=== PATIENT | female | born 1960 | race Caucasian/White ===

== ENCOUNTER 2016-05-15 14:15 | Observation (INO) | payer MEDICARE ==
[~2016-05-15] VITALS: Ht 162.6 cm; Wt 101.3 kg
[~2016-05-15 14:15] MED LIST: BUSPIRONE HCL15 MG PO; CORDARONE 200M200 MG PO; COREG 3.125M3.125 MG PO; CYMBALTA60 MG PO; ELIQUIS2.5 MG PO; FERROUS SULFAT140 MG PO; IMDUR ER TAB 3030 MG PO; IPRAT-ALBUT 0.5-3 ML INH; KLOR-CON M2020 MEQ PO; LASIX 40 MG TAB40 MG PO; LINZESS145 MCG PO; LIORESAL TAB 1010 MG PO; LISINOPRIL5 MG PO; NITROSTAT0.4 MG SL; ONE-A-DAY WOM200 MCG PO; PRAVACHOL20 MG PO; PROTONIX 40 MG40 M1 PO; RANEXA1000 MG PO; ST. JOSEPH ASPI81 MG PO; TECFIDERA240 MG PO; VITAMIN B-122500 MCG SL; VITAMIN D31000 UNI1 PO
[2016-05-15 16:09] LABS: HEMOGLOBIN 12.5 gm/dl (12.3-15.3); RED BLOOD COUNT 4.76 M/UL (4.00-5.10); WHITE BLOOD COUNT 4.4 K/UL (4.5-11.0)
[2016-05-15 17:42] LABS: BUN/CREATININE RATIO 13 (0-10)
[2016-05-16 03:02] LABS: HEMOGLOBIN 13.6 gm/dl (12.3-15.3); RED BLOOD COUNT 5.1 M/UL (4.00-5.10); WHITE BLOOD COUNT 5.2 K/UL (4.5-11.0)
[2016-05-16 03:22] LABS: BUN/CREATININE RATIO 13 (0-10)
[2016-05-17] MEDS ORDERED: ROBITUSSIN DM U10 ML PO (12:23)
[2016-05-17] MEDS ORDERED: Z-PAK (12:24)
[2016-05-17] MEDS ORDERED: MEDROL DOSEPAK 24 MG PO (12:24)
== END 2016-05-17 13:45 | disposition home or self-care (01) ==
LOC: ER1 14:15 → M/S 18:40 → ZEROF 18:40 → M/S 20:30
PROVIDERS: Emergency Medicine; ADMIT Hospitalist
DX: I50.23 Acute on chronic systolic (congestive) heart failure (principal); I11.0 Hypertensive heart disease with heart failure; J20.9 Acute bronchitis, unspecified; I25.5 Ischemic cardiomyopathy; I25.10 Atherosclerotic heart disease of native coronary artery without angina pectoris; I48.0 Paroxysmal atrial fibrillation; E78.5 Hyperlipidemia, unspecified; J44.1 Chronic obstructive pulmonary disease with (acute) exacerbation; D50.9 Iron deficiency anemia, unspecified; Z95.810 Presence of automatic (implantable) cardiac defibrillator; Z87.39 Personal history of other diseases of the musculoskeletal system and connective tissue; Z79.82 Long term (current) use of aspirin; Z79.899 Other long term (current) drug therapy; Z90.710 Acquired absence of both cervix and uterus; Z98.61 Coronary angioplasty status; Z87.891 Personal history of nicotine dependence; Z79.52 Long term (current) use of systemic steroids; Z79.01 Long term (current) use of anticoagulants; Z88.8 Allergy status to other drugs, medicaments and biological substances
CPT/HCPCS: 36415; 36600; 71010; 80053; 80061; 82550; 82553; 82803; 83880; 84439; 84443; 84480; 84484; 85025; 85027; 87040; 94640; 94664; 96365; 96366; 96374; 96375; 96376; 99285; C9113; G0378; J1940; J1956; J2920; J2930

== ENCOUNTER → 2016-06-11 | Outpatient (CLI) | payer MEDICARE ==
[~2016-06-11] MED LIST changes: +MEDROL DOSEPAK 24 MG PO; +ROBITUSSIN DM U10 ML PO; +Z-PAK
== END ==
LOC: US 09:30
DX: I63.8 Other cerebral infarction (principal); I65.23 Occlusion and stenosis of bilateral carotid arteries; J32.3 Chronic sphenoidal sinusitis; I42.9 Cardiomyopathy, unspecified
CPT/HCPCS: ECHO; 70450; 93306; 93880

== ENCOUNTER → 2016-11-08 | Outpatient (CLI) | payer MEDICARE | LOC: HEART 5 08:21 | DX: Z79.899 Other long term (current) drug therapy (principal); F17.210 Nicotine dependence, cigarettes, uncomplicated; R94.2 Abnormal results of pulmonary function studies | CPT/HCPCS: 94060; 94729 ==

== ENCOUNTER → 2020-07-22 | Outpatient (CLI) | payer MEDICARE, OTHER ==
[~2020-07-22] MED LIST changes: +ALLERGY25 M1 PO; +AMPYRA10 MG PO; +ASPIRIN81 MG PO; +BREO ELLIPTA 21 EACH INH; +BUMETANIDE1 MG PO; +CLOPIDOGREL75 MG PO; +COPAXONE40 MG/1 ML IM; +DOXYCYCLINE HY100 M2 PO; +DULERA 100 MCG8.8 GM INH; +ENTRESTO 24 MG1 EACH PO; +FLUZONE QU60 MCG/015 IM; +FOLIC ACID PO; +IPRAT-ALBUT 0.5-3 ML NEB; +IRON PO; +MEGA BIOTIN10000 MCG PO; +OMEPRAZOLE40 MG PO; +OMNICEF 300 MG300 MG PO; +OXCARBAZEPINE150 MG PO; +PREDNISONE20 MG PO; -PROTONIX 40 MG40 M1 PO; +SYMBICORT 16010.2 GM INH; +VALIUM 5 MG TAB5 MG PO; +VENTOLIN HFA 66.7 GM INH; +VITAMIN C 500500 MG PO; +VOLTAREN100 GM TP
== END ==
LOC: LAB 12:40
DX: I20.9 Angina pectoris, unspecified (principal); I25.10 Atherosclerotic heart disease of native coronary artery without angina pectoris; I25.5 Ischemic cardiomyopathy; I50.22 Chronic systolic (congestive) heart failure; Z79.899 Other long term (current) drug therapy
CPT/HCPCS: 36415; 80076; 84439; 84443; 84481

== ENCOUNTER → 2020-09-11 | Outpatient (CLI) | payer MEDICARE | LOC: HEART 5 08:58 | DX: I50.22 Chronic systolic (congestive) heart failure (principal); I25.5 Ischemic cardiomyopathy; Z79.899 Other long term (current) drug therapy; R06.02 Shortness of breath; R06.2 Wheezing | CPT/HCPCS: 94060; 94729 ==

== ENCOUNTER → 2020-09-12 | Outpatient (CLI) | payer MEDICARE | LOC: ECHO 12:00 → NM 13:00 | DX: I50.22 Chronic systolic (congestive) heart failure (principal); I25.10 Atherosclerotic heart disease of native coronary artery without angina pectoris; I25.5 Ischemic cardiomyopathy; R00.2 Palpitations; R06.02 Shortness of breath; R20.9 Unspecified disturbances of skin sensation; I07.1 Rheumatic tricuspid insufficiency | CPT/HCPCS: ECHO; 78452; 93017; 93306; A9502; J2785 ==

== ENCOUNTER 2020-10-03 15:28 | Emergency (ER) | payer MEDICARE | END 2020-10-03 16:25 | disposition home or self-care (01) | LOC: ER1 15:28 | DX: R07.9 Chest pain, unspecified (principal); R06.02 Shortness of breath; J44.9 Chronic obstructive pulmonary disease, unspecified; I10 Essential (primary) hypertension | CPT/HCPCS: 73590; 99284 ==

== ENCOUNTER → 2021-01-12 | Outpatient (CLI) | payer MEDICARE | LOC: KOH-I 11:44 | DX: M25.552 Pain in left hip (principal); M89.8X8 Other specified disorders of bone, other site | CPT/HCPCS: 73502 ==

== ENCOUNTER → 2021-02-03 | Outpatient (CLI) | payer MEDICARE | LOC: KOH-I 14:22 | DX: M87.9 Osteonecrosis, unspecified (principal); M89.8X5 Other specified disorders of bone, thigh; Z95.0 Presence of cardiac pacemaker | CPT/HCPCS: 73700 ==

== ENCOUNTER 2021-03-18 18:34 | Emergency (ER) | payer MEDICARE ==
[2021-03-18 20:30] LABS: HEMOGLOBIN 12.1 gm/dl (12.3-15.3); RED BLOOD COUNT 4.49 M/UL (4.00-5.10)
[2021-03-18 21:13] LABS: BUN/CREATININE RATIO 27 (0-10)
== END 2021-03-19 00:16 | disposition home or self-care (01) ==
LOC: ER1 18:34
PROVIDERS: Physician Assistant
DX: S70.02XA Contusion of left hip, initial encounter (principal); I50.9 Heart failure, unspecified; Z95.0 Presence of cardiac pacemaker; J44.1 Chronic obstructive pulmonary disease with (acute) exacerbation; Z79.82 Long term (current) use of aspirin; I11.0 Hypertensive heart disease with heart failure; W19.XXXA Unspecified fall, initial encounter
CPT/HCPCS: 36600; 70450; 71045; 72125; 73700; 80053; 82550; 82553; 82803; 83605; 83874; 83880; 84484; 85025; 87040; 99284

== ENCOUNTER → 2021-04-07 | Outpatient (CLI) | payer MEDICARE ==
[~2021-04-07] MED LIST changes: +OLANZAPINE5 MG PO
[2021-04-07 11:33] LABS: HEMOGLOBIN 12.2 gm/dl (12.3-15.3); RED BLOOD COUNT 4.53 M/UL (4.00-5.10); WHITE BLOOD COUNT 8.1 K/UL (4.5-11.0)
== END ==
LOC: OPSV2 10:00 → EDSTATUS 10:00 → OPSV2 10:14
PROVIDERS: Orthopaedic Surgery
DX: Z01.818 Encounter for other preprocedural examination (principal); M87.9 Osteonecrosis, unspecified; I25.10 Atherosclerotic heart disease of native coronary artery without angina pectoris; I48.0 Paroxysmal atrial fibrillation; I50.22 Chronic systolic (congestive) heart failure; I25.5 Ischemic cardiomyopathy; Z95.810 Presence of automatic (implantable) cardiac defibrillator
CPT/HCPCS: 36415; 80048; 83036; 85025; 93005

== ENCOUNTER → 2021-05-01 | Outpatient (CLI) | payer MEDICARE ==
[2021-05-01 12:14] LABS: BUN/CREATININE RATIO 22 (0-10)
== END ==
LOC: LAB 10:47
PROVIDERS: Physician Assistant
DX: I50.22 Chronic systolic (congestive) heart failure (principal); I25.10 Atherosclerotic heart disease of native coronary artery without angina pectoris; R06.02 Shortness of breath
CPT/HCPCS: 36415; 80048; 83880

== ENCOUNTER 2021-05-26 17:54 | Emergency (ER) | payer MEDICARE ==
[2021-05-26 18:26] LABS: HEMOGLOBIN 11.4 gm/dl (12.3-15.3); RED BLOOD COUNT 4.11 M/UL (4.00-5.10)
[2021-05-26 18:58] LABS: BUN/CREATININE RATIO 25 (0-10)
[2021-05-26] MEDS ORDERED: PERCOCET 5/325 T1 EA PO (20:47)
== END 2021-05-26 21:38 | disposition home or self-care (01) ==
LOC: ER1 17:54
PROVIDERS: Emergency Medicine
DX: M25.552 Pain in left hip (principal); E11.9 Type 2 diabetes mellitus without complications; I50.9 Heart failure, unspecified; J44.9 Chronic obstructive pulmonary disease, unspecified; Z90.710 Acquired absence of both cervix and uterus
CPT/HCPCS: 71045; 80053; 82550; 82553; 83036; 83880; 84484; 85025; 93005; 96372; 99284; J2270; J2550

== ENCOUNTER 2021-07-01 19:17 | Inpatient (IN) | payer MEDICARE, MEDICAID ==
[~2021-07-01] VITALS: Ht 162.6 cm; Wt 118.0 kg
[~2021-07-01 19:17] MED LIST changes: +ARTHRITIS PAIN150 GM TOP; +COREG 12.5MG12.5 MG PO; -COREG 3.125M3.125 MG PO; +ELIQUIS5 MG PO; +ENTRESTO 49 MG1 EACH PO; -FOLIC ACID PO; +FOLIC ACID0.8 MG PO; -IMDUR ER TAB 3030 MG PO; +ISOSORBIDE MONO30 MG PO; -MEGA BIOTIN10000 MCG PO; -OLANZAPINE5 MG PO; +OMEPRAZOLE20 MG PO; -OMEPRAZOLE40 MG PO; +PERCOCET 5/325 T1 EA PO; -VENTOLIN HFA 66.7 GM INH; -VOLTAREN100 GM TP
[2021-07-01 20:12] LABS: HEMOGLOBIN 10.7 gm/dl (12.3-15.3); RED BLOOD COUNT 3.8 M/UL (4.00-5.10); WHITE BLOOD COUNT 7.1 K/UL (4.5-11.0)
[2021-07-01 20:32] LABS: BUN/CREATININE RATIO 23 (0-10)
[2021-07-01 22:22] LABS: BORDETELLA PARAPERTUSSIS Not Detected (Not Detectd); BORDETELLA PERTUSSIS Not Detected (Not Detectd); CHLAMYDIA PNEUMONIAE Not Detected (Not Detectd); CORONAVIRUS HKU1 Not Detected (Not Detectd); CORONAVIRUS NL63 Not Detected (Not Detectd); CORONAVIRUS OC43 Not Detected (Not Detectd); CORONOAVIRUS 229E Not Detected (Not Detectd); HUMAN METAPNEUMOVIRUS Not Detected (Not Detectd); HUMAN RHINOVIRUS/ENTEROVIRUS Not Detected (Not Detectd); INFLUENZA A Not Detected (Not Detectd); INFLUENZA B Not Detected (Not Detectd); MYCOPLASMA PNEUMONIAE Not Detected (Not Detectd); PARAINFLUENZA VIRUS 1 Not Detected (Not Detectd); PARAINFLUENZA VIRUS 2 Not Detected (Not Detectd); PARAINFLUENZA VIRUS 3 Not Detected (Not Detectd); PARAINFLUENZA VIRUS 4 Not Detected (Not Detectd); RESPIRATORY SYNCYTIAL VIRUS Not Detected (Not Detectd)
[2021-07-01 23:29] LABS: SARS-CoV-2 NOT DETECTED (Not Detectd)
[2021-07-02 04:42] LABS: HEMOGLOBIN 10.7 gm/dl (12.3-15.3); RED BLOOD COUNT 3.82 M/UL (4.00-5.10); WHITE BLOOD COUNT 6.8 K/UL (4.5-11.0)
[2021-07-02 05:02] LABS: BUN/CREATININE RATIO 27 (0-10)
[2021-07-02] MEDS ORDERED: PROVENTIL HFA6.7 GM INH (09:48)
[2021-07-02] MEDS ORDERED: MEGA BIOTIN10000 MCG PO (09:51)
[2021-07-02] MEDS ORDERED: OLANZAPINE5 MG PO ×2 (11:15→12:11)
[2021-07-02] MEDS ORDERED: NITROGLYCERIN0.4 MG SL (11:18)
[2021-07-02] MEDS ORDERED: CEFDINIR300 MG PO (11:20)
[2021-07-02] MEDS ORDERED: ACETAMINOPHEN-1 EAC2 PO (11:22)
[2021-07-02] MEDS ORDERED: PERCOCET 5-3251 EACH PO (11:26)
[2021-07-02] MEDS ORDERED: GABAPENTIN300 MG PO (11:28)
[2021-07-02] MEDS ORDERED: IBU400 MG PO (11:30)
[2021-07-02] MEDS ORDERED: BUMETANIDE1 MG PO (11:41)
[2021-07-02] MEDS ORDERED: DOCUSATE SODIU100 MG PO (11:50)
[2021-07-02 12:39] LABS: CANDIDA ALBICANS Not Detected (Negative); CANDIDA KRUSEI Not Detected (Negative); CANDIDA TROPICALIS Not Detected (Negative); ESCHERICHIA COLI Not Detected (Negative); HAEMOPHILUS INFLUENZAE Not Detected (Negative); KLEBSIELLA OXYTOCA Not Detected (Negative); KLEBSIELLA PNEUMONIAE Not Detected (Negative); KPC-CARBAPENEM-RESISTANCE GENE Not Detected (Negative); PROTEUS Not Detected (Negative); PSEUDOMONAS AERUGINOSA Not Detected (Negative); SERRATIA MARCESANS Not Detected (Negative); STAPHYLOCOCCUS Not Detected (Negative); STAPHYLOCOCCUS AUREUS Not Detected (Negative); STREP AGALACTIAE (GROUP B) Not Detected (Negative); STREP PYOGENES (GROUP A) Not Detected (Negative); STREPTOCOCCUS Not Detected (Negative); vanA/B (VANCOMYCIN RESIST GENE Not Detected (Negative)
[2021-07-02 17:10] LABS: BUN/CREATININE RATIO 33 (0-10)
[2021-07-03 06:38] LABS: HEMOGLOBIN 10.3 gm/dl (12.3-15.3); RED BLOOD COUNT 3.69 M/UL (4.00-5.10)
[2021-07-03 06:39] LABS: WHITE BLOOD COUNT 11.1 K/UL (4.5-11.0)
[2021-07-03 07:08] LABS: BUN/CREATININE RATIO 28 (0-10)
[2021-07-04 03:48] LABS: HEMOGLOBIN 11.4 gm/dl (12.3-15.3); RED BLOOD COUNT 4.09 M/UL (4.00-5.10); WHITE BLOOD COUNT 8.8 K/UL (4.5-11.0)
[2021-07-04 04:13] LABS: BUN/CREATININE RATIO 32 (0-10)
[2021-07-05 03:46] LABS: HEMOGLOBIN 11.8 gm/dl (12.3-15.3); RED BLOOD COUNT 4.19 M/UL (4.00-5.10); WHITE BLOOD COUNT 8.2 K/UL (4.5-11.0)
[2021-07-05 03:49] LABS: BUN/CREATININE RATIO 36 (0-10)
[2021-07-06 03:00] LABS: HEMOGLOBIN 11.7 gm/dl (12.3-15.3); RED BLOOD COUNT 4.2 M/UL (4.00-5.10); WHITE BLOOD COUNT 8.4 K/UL (4.5-11.0)
[2021-07-06 03:46] LABS: BUN/CREATININE RATIO 32 (0-10)
[2021-07-07 03:16] LABS: HEMOGLOBIN 11.1 gm/dl (12.3-15.3); RED BLOOD COUNT 4.03 M/UL (4.00-5.10)
[2021-07-08 03:00] LABS: HEMOGLOBIN 10.9 gm/dl (12.3-15.3); RED BLOOD COUNT 3.9 M/UL (4.00-5.10); WHITE BLOOD COUNT 9.8 K/UL (4.5-11.0)
[2021-07-08 03:44] LABS: BUN/CREATININE RATIO 29 (0-10)
[2021-07-09 06:45] LABS: BUN/CREATININE RATIO 24 (0-10)
[2021-07-09] MEDS ORDERED: PERCOCET 5-3251 EACH PO (13:43)
[2021-07-09] MEDS ORDERED: VALIUM 5 MG TAB5 MG PO (13:43)
[2021-07-09] MEDS ORDERED: ACETAMINOPHEN-1 EAC2 PO (13:43)
[2021-07-09] MEDS ORDERED: GABAPENTIN300 MG PO (13:43)
[2021-07-09] MEDS ORDERED: IPRAT-ALBUT 0.5-3 ML NEB (13:43)
[2021-07-09] MEDS ORDERED: BUMETANIDE1 MG PO (13:45)
[2021-07-09] MEDS ORDERED: HUMALOG 10100 UNITS/ SC (13:45)
[2021-07-10 04:28] LABS: HEMOGLOBIN 10.5 gm/dl (12.3-15.3); RED BLOOD COUNT 3.75 M/UL (4.00-5.10)
[2021-07-10 04:38] LABS: WHITE BLOOD COUNT 6.7 K/UL (4.5-11.0)
[2021-07-10 05:05] LABS: BUN/CREATININE RATIO 25 (0-10)
[2021-07-11 02:34] LABS: HEMOGLOBIN 10.3 gm/dl (12.3-15.3); RED BLOOD COUNT 3.62 M/UL (4.00-5.10); WHITE BLOOD COUNT 5.5 K/UL (4.5-11.0)
[2021-07-11 02:41] LABS: BUN/CREATININE RATIO 23 (0-10)
[2021-07-13] MEDS ORDERED: PERCOCET 5/325 T1 EA PO (14:00)
[2021-07-13] MEDS ORDERED: GABAPENTIN300 MG PO (14:00)
--- NOTE | 2021-07-13 16:17 | NUR ---
report given to toño at located [facility]
== END 2021-07-13 14:07 | disposition home health service (06) | DRG 291 ==
LOC: ER1 19:17 → MED SURG 4 21:43 → CDU 21:43 → PROG CARE 21:43 → MED SURG 4 07-03 13:41
PROVIDERS: Family Medicine; Internal Medicine; ADMIT Internal Medicine
DX: I13.0 Hypertensive heart and chronic kidney disease with heart failure and stage 1 through stage 4 chronic kidney disease, or unspecified chronic kidney disease (principal); J96.21 Acute and chronic respiratory failure with hypoxia; Z66 Do not resuscitate; Z20.822 Contact with and (suspected) exposure to COVID-19; I50.23 Acute on chronic systolic (congestive) heart failure; A41.9 Sepsis, unspecified organism; J96.22 Acute and chronic respiratory failure with hypercapnia; J44.1 Chronic obstructive pulmonary disease with (acute) exacerbation; N17.9 Acute kidney failure, unspecified; E87.1 Hypo-osmolality and hyponatremia; I47.2 Ventricular tachycardia; E66.2 Morbid (severe) obesity with alveolar hypoventilation; E11.52 Type 2 diabetes mellitus with diabetic peripheral angiopathy with gangrene; M87.88 Other osteonecrosis, other site; J44.0 Chronic obstructive pulmonary disease with (acute) lower respiratory infection; Z68.41 Body mass index [BMI] 40.0-44.9, adult; E87.0 Hyperosmolality and hypernatremia; L89.321 Pressure ulcer of left buttock, stage 1; G35 Multiple sclerosis; I34.0 Nonrheumatic mitral (valve) insufficiency; R26.89 Other abnormalities of gait and mobility; R33.9 Retention of urine, unspecified; I25.10 Atherosclerotic heart disease of native coronary artery without angina pectoris; I25.5 Ischemic cardiomyopathy; F41.9 Anxiety disorder, unspecified; F32.A Depression, unspecified; R53.81 Other malaise; I95.9 Hypotension, unspecified; E11.65 Type 2 diabetes mellitus with hyperglycemia; T50.2X5A Adverse effect of carbonic-anhydrase inhibitors, benzothiadiazides and other diuretics, initial encounter; E87.6 Hypokalemia; J20.9 Acute bronchitis, unspecified; G89.4 Chronic pain syndrome; I48.0 Paroxysmal atrial fibrillation; M16.12 Unilateral primary osteoarthritis, left hip; F22 Delusional disorders; I45.81 Long QT syndrome; Z79.01 Long term (current) use of anticoagulants; Z79.82 Long term (current) use of aspirin; Z95.810 Presence of automatic (implantable) cardiac defibrillator; Z79.4 Long term (current) use of insulin; Z99.81 Dependence on supplemental oxygen; Z74.01 Bed confinement status; Z95.5 Presence of coronary angioplasty implant and graft; Z90.710 Acquired absence of both cervix and uterus; Z88.6 Allergy status to analgesic agent; Z88.5 Allergy status to narcotic agent; Z88.8 Allergy status to other drugs, medicaments and biological substances; Z83.3 Family history of diabetes mellitus; Z82.0 Family history of epilepsy and other diseases of the nervous system; Z83.6 Family history of other diseases of the respiratory system; Z87.891 Personal history of nicotine dependence
CPT/HCPCS: 36415; 36600; 71045; 73502; 73552; 80048; 80053; 81001; 82550; 82553; 82803; 82962; 83036; 83605; 83735; 83880; 84100; 84132; 84484; 85025; 85027; 85652; 86140; 87040; 87077; 87086; 87150; 87186; 87633; 93005; 94640; 94660; 94664; 94760; 96365; 96375; 97116; 97116-GP-CQ; 97162; 97166; 97530; 97530-GP-CQ; 99284; J0295; J1120; J1940; J1956; J2920; J2930; J3370; J3480; J7070